=== PATIENT | male | born 1980 | race Caucasian/White ===

== ENCOUNTER → 2017-08-14 | Outpatient (CLI) | payer OTHER | LOC: M EKG 11:38 | DX: Z43.1 Encounter for attention to gastrostomy (principal) | CPT/HCPCS: 93005 ==

== ENCOUNTER 2017-10-27 12:04 | Day surgery (SDC) | payer OTHER ==
[2017-10-27] MEDS ORDERED: LIDOCAINE 1% MDV 20ML VIAL SQ (12:45)
[2017-10-27] MEDS ORDERED: fentaNYL 250 MCG/5 ML INJECTION (J3010) As Ordered (12:46)
[2017-10-27] MEDS ORDERED: MIDAZOLAM INJ 2 MG/2 ML VIAL (J2250) As Ordered (12:46)
[2017-10-27] MEDS ORDERED: LIDOCAINE 2% INJ 100 MG/5 ML SDV (FOR ANES.) As Ordered ×2 (12:46→15:35)
[2017-10-27] MEDS ORDERED: PROPOFOL 200 MG/20 ML VIAL As Ordered ×7 (12:46→16:06)
[2017-10-27] MEDS ORDERED: METOCLOPRAMIDE INJ 10MG/2ML VIAL (J2765) As Ordered (12:46)
[2017-10-27] MEDS ORDERED: ROCURONIUM BROMIDE 50 MG/5 ML VIAL As Ordered (12:46)
[2017-10-27] MEDS ORDERED: ONDANSETRON 4MG/2ML VIAL (J2405) As Ordered (12:46)
[2017-10-27] MEDS: LR 1,000 ML IV ×2 (13:00→17:15)
[2017-10-27] MEDS: CelecoXIB 400 MG CAP PO (13:01)
[2017-10-27] MEDS: PREGABALIN 50 MG CAP (LYRICA) PO ×2 (13:02→20:08)
[2017-10-27] MEDS: PERCOCET 5MG/325MG TAB PO ×2 (13:03→20:08)
[2017-10-27] MEDS: VANCOMYCIN HCL 1,000 MG, VIAL MATE ADAPTER 1 EACH in D5W 250 ML IV ×2 (13:05→20:08)
[2017-10-27] MEDS ORDERED: SCOPOLAMINE 1MG TRANSDERMAL PATCH As Ordered (13:29)
[2017-10-27] MEDS: SCOPOLAMINE 1MG TRANSDERMAL PATCH TOP (13:40)
[2017-10-27] MEDS: LIDOCAINE W/EPINEPHRINE 1% 20ML VIAL As Ordered (14:56)
[2017-10-27] MEDS: THROMBIN SOLN 20,000 UNITS KIT As Ordered (16:07)
[2017-10-27] MEDS ORDERED: dexameTHASONE 4 MG/ML 1ML VIAL (J1100) As Ordered ×2 (16:07)
[2017-10-27] MEDS ORDERED: GLYCOPYRROLATE INJ 0.2 MG/ML 2 ML VIAL As Ordered ×2 (16:07→16:08)
[2017-10-27] MEDS: BACITRACIN PWD 50,000 UNITS VIAL As Ordered (16:07)
[2017-10-27] MEDS ORDERED: NEOSTIGMINE 10 MG/10 ML VIAL (J2710) As Ordered (16:08)
[2017-10-27] MEDS: BUPIVACAINE HCL 0.25% 10 ML VIAL As Ordered (16:09)
[2017-10-27] MEDS: BUPIVACAINE LIPOSOME/PF 1.3% 20 ML VIAL (13.3MG/ML)(EXPAREL) As Ordered (16:10)
[2017-10-27] MEDS ORDERED: ONDANSETRON 4MG/2ML VIAL (J2405) IV (17:15)
[2017-10-27] MEDS ORDERED: HYDROmorphone HCL 1 MG/ML SYRINGE (J1170) IV ×3 (17:15)
[2017-10-27] MEDS ORDERED: ACETAMINOPHEN TAB 650MG DOSE (2X325MG) PO (17:15)
[2017-10-27] MEDS ORDERED: PERCOCET 5MG/325MG TAB PO ×2 (17:15)
[2017-10-27] MEDS ORDERED: fentaNYL 100 MCG/2 ML INJECTION (J3010) IV (17:15)
[2017-10-27] MEDS ORDERED: CYCLOBENZAPRINE 10 MG TAB PO (17:30)
[2017-10-27] MEDS: D5W/LR 1,000 ML IV (18:46)
[2017-10-28] MEDS: PERCOCET 5MG/325MG TAB PO ×3 (00:04→11:45)
[2017-10-28] MEDS: METAMUCIL (PSYLLIUM) PACKET PO (08:38)
[2017-10-28] MEDS: MOM 30ML SUSPENSION UDC PO (08:38)
[2017-10-28] MEDS: PREGABALIN 50 MG CAP (LYRICA) PO (08:38)
[2017-10-28] MEDS: CelecoXIB (CeleBREX) 100 MG CAP PO (08:39)
[2017-10-28] MEDS: ONDANSETRON 4 MG TAB (S0181) PO (11:44)
== END 2017-10-28 11:55 | disposition home or self-care (01) ==
LOC: M SDC 12:04 → M MS5PR 18:10
DX: M51.17 Intervertebral disc disorders with radiculopathy, lumbosacral region (principal); M12.9 Arthropathy, unspecified; T88.59XD Other complications of anesthesia, subsequent encounter; Z88.0 Allergy status to penicillin
CPT/HCPCS: 63030

== ENCOUNTER → 2021-04-10 | Outpatient (CLI) | payer OTHER ==
[~2021-04-10] MED LIST: CYCL-707 PO; NAPR-849 PO; PROHANCE 279.3MG/ML 15ML VIAL As Ordered ONE; PROHANCE 279.3MG/ML 5ML VIAL As Ordered ONE
--- NOTE | 2021-04-10 20:38 | REPVR ---
PROCEDURE INFORMATION: Exam: MR Lumbar Spine Without and With Contrast Exam date and time: 04/10/2021 6:10 PM Age: 40 years old Clinical indication: Low back pain; Additional info: Radiculopathy TECHNIQUE: Imaging protocol: Multiplanar magnetic resonance images of the lumbar spine without and with intravenous contrast. Contrast material: PROHANCE; Contrast volume: 20 ml; Contrast route: INTRAVENOUS (IV); COMPARISON: [facility]. Lumbosacral, complete 10/27/2017 3:13 PM FINDINGS: Vertebral body heights are maintained. Mild Modic type 1 edematous degenerative endplate change at L5-S1. No cord compression. No abnormal cord signal. Conus medullaris terminates at the L1 level. Paravertebral soft tissues are unremarkable. L1-L2: No significant canal or foraminal narrowing. L2-L3: No significant canal or foraminal narrowing. L3-L4: No significant canal or foraminal narrowing. L4-L5: No significant canal or foraminal narrowing. L5-S1: Broad-based disc bulge and facet hypertrophy cause moderate left and [id number] right foraminal narrowing. Slight impingement upon the exiting left L5 nerve root. No significant canal narrowing. 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 Electronically signed by: Rei Hughes On 04/10/2021 20:37:58 PM
== END ==
LOC: M RAD 17:20
PROVIDERS: ATTEND Physical Medicine & Rehabilitation
DX: M51.27 Other intervertebral disc displacement, lumbosacral region (principal); M48.07 Spinal stenosis, lumbosacral region; M96.1 Postlaminectomy syndrome, not elsewhere classified
CPT/HCPCS: 72158; A9576

== ENCOUNTER → 2023-12-18 | Outpatient (REF) ==
[~2023-12-18] MED LIST changes: -PROHANCE 279.3MG/ML 15ML VIAL As Ordered ONE; -PROHANCE 279.3MG/ML 5ML VIAL As Ordered ONE
== END ==
LOC: M PLAIMG 11:24
PROVIDERS: ATTEND Internal Medicine
DX: M54.6 Pain in thoracic spine (principal)

== ENCOUNTER → 2024-09-28 | Outpatient (CLI) | payer OTHER ==
[~2024-09-28] MED LIST changes: +BUSP10TA PO; +TAMS1CAP17 PO; +TRAZ-252 PO
[2024-09-28 11:49] LABS: APPEARANCE, URINE CLEAR (CLEAR); BACTERIA, URINE AUTO NEGATIVE (NEGATIVE); BILIRUBIN, URINE AUTO NEGATIVE (NEGATIVE); BLOOD, URINE BLOOD NEGATIVE (NEGATIVE); COLOR, URINE STRAW (YELLOW); GLUCOSE, URINE (UA) AUTO NEGATIVE (NEGATIVE); KETONE, URINE AUTO NEGATIVE (NEGATIVE); LEUKOCYTE ESTERASE, URINE AUTO NEGATIVE (NEGATIVE); NITRITE, URINE AUTO NEGATIVE (NEGATIVE); PROTEIN, URINE AUTO NEGATIVE (NEGATIVE); RBC, URINE AUTO 0 /HPF (0-3); SPECIFIC GRAVITY URINE AUTO 1.003 (1.002-1.035); SQUAMOUS EPITHELIAL CELL UR AU 0 /HPF (0-6); UROBILINOGEN, URINE AUTO 0.2 mg/dL (0.0-2.0); WBC, URINE AUTO 0 /HPF (0-3)
[2024-09-28 12:00] LABS: HEMATOCRIT 41.9 % (42.0-52.0); HEMOGLOBIN 14.1 g/dl (13.5-17.5); MEAN CORPUSCULAR HEMOGLOBIN 30.9 pg (27.0-33.0); MEAN CORPUSCULAR HGB CONC 33.7 g/dl (32.0-36.5); MEAN CORPUSCULAR VOLUME 91.7 fl (80.0-96.0); PLATELET COUNT, AUTOMATED 328 10^3/uL (150-450); RED BLOOD COUNT 4.57 10^6/uL (4.30-6.10)
[2024-09-28 12:16] LABS: BLOOD UREA NITROGEN 13 MG/DL (9-23); CALCIUM LEVEL 9.3 MG/DL (8.5-10.1); CARBON DIOXIDE LEVEL 30 MMOL/L (20-31); CHLORIDE LEVEL 104 MMOL/L (98-107); CREATININE FOR GFR 0.78 MG/DL (0.70-1.30); GLOMERULAR FILTRATION RATE > 60.0 (>60); GLUCOSE, FASTING 96 MG/DL (60-100); POTASSIUM SERUM 4.1 MMOL/L (3.5-5.1); SODIUM LEVEL 141 MMOL/L (136-145)
== END ==
LOC: M RAD 10:22
PROVIDERS: ATTEND Physician Assistant
DX: Z01.818 Encounter for other preprocedural examination (principal); Z79.899 Other long term (current) drug therapy

== ENCOUNTER 2024-10-05 09:28 | Day surgery (SDC) | payer OTHER ==
[~2024-10-05] VITALS: Ht 182.9 cm; Wt 103.6 kg
[2024-10-05] MEDS ORDERED: MIDAZOLAM INJ 2MG/2ML VIAL As Ordered ONE (10:14)
[2024-10-05] MEDS ORDERED: propofoL 200 MG/20 ML VIAL As Ordered ONE (10:14)
[2024-10-05] MEDS ORDERED: ONDANSETRON 4MG 2ML VIAL As Ordered ONE (10:14)
[2024-10-05] MEDS ORDERED: LIDOCAINE 2% 100MG/5ML SDV (FOR ANES.) As Ordered ONE (10:14)
[2024-10-05] MEDS ORDERED: fentaNYL 100 MCG/2 ML INJECTION As Ordered ONE (10:15)
[2024-10-05] MEDS ORDERED: NS (Normal Saline) 0.9% 1,000 ML IV SCH ×2 (10:25→12:50)
[2024-10-05] MEDS ORDERED: SCOPOLAMINE 1MG TRANSDERMAL PATCH TOP SCH (10:25)
[2024-10-05] MEDS ORDERED: diphenhydrAMINE 50MG/ML VIAL As Ordered ONE (10:38)
[2024-10-05] MEDS: SCOPOLAMINE 1MG TRANSDERMAL PATCH TOP ONE (10:39)
[2024-10-05] MEDS ORDERED: METOCLOPRAMIDE INJ 10MG/2ML VIAL As Ordered ONE (10:41)
[2024-10-05] MEDS: ceFAZolin SOD 2 GM in IV 1 EA IV ONE (12:09)
[2024-10-05] MEDS ORDERED: ACETAMINOPHEN 1000MG/100ML IV BAG As Ordered ONE (12:20)
[2024-10-05] MEDS: ISOVUE-300 61% 100ML VIAL As Ordered ONE (12:39)
[2024-10-05] MEDS ORDERED: HYDROMORPHONE HCL 0.5 MG/ 0.5 ML SYRINGE IV PRN (12:50)
[2024-10-05] MEDS ORDERED: oxyCODONE 5MG TAB PO PRN (12:50)
[2024-10-05] MEDS ORDERED: fentaNYL 100 MCG/2 ML INJECTION IV PRN (12:50)
[2024-10-05] MEDS ORDERED: ONDANSETRON 4MG 2ML VIAL IV PRN (12:50)
[2024-10-05] MEDS ORDERED: PERCOCET 5MG/325MG TAB PO PRN (13:05)
[2024-10-05 14:36] VITALS: BP 106/54; TEMP 96.6; O2SAT 96
== END 2024-10-05 14:50 | disposition home or self-care (01) ==
LOC: M SDC 09:28
PROVIDERS: ATTEND Urology
DX: N20.2 Calculus of kidney with calculus of ureter (principal); F41.9 Anxiety disorder, unspecified; F32.A Depression, unspecified; F43.10 Post-traumatic stress disorder, unspecified; G43.909 Migraine, unspecified, not intractable, without status migrainosus; Z79.899 Other long term (current) drug therapy; Z88.0 Allergy status to penicillin
CPT/HCPCS: 52005; 76000; J0131; J0690; J1100; J1200; J2250; J2405; J2765; J3010; Q9967

== ENCOUNTER → 2024-11-07 | Outpatient (CLI) | payer OTHER ==
[2024-11-07 12:39] LABS: HEMATOCRIT 42.5 % (42.0-52.0); HEMOGLOBIN 14.4 g/dl (13.5-17.5); MEAN CORPUSCULAR HEMOGLOBIN 30.6 pg (27.0-33.0); MEAN CORPUSCULAR HGB CONC 33.9 g/dl (32.0-36.5); MEAN CORPUSCULAR VOLUME 90.2 fl (80.0-96.0); PLATELET COUNT, AUTOMATED 303 10^3/uL (150-450); RED BLOOD COUNT 4.71 10^6/uL (4.30-6.10); WHITE BLOOD COUNT 8.3 10^3/uL (4.0-10.0)
[2024-11-07 13:59] LABS: BLOOD UREA NITROGEN 18 MG/DL (9-23); CALCIUM LEVEL 9.1 MG/DL (8.5-10.1); CARBON DIOXIDE LEVEL 30 MMOL/L (20-31); CHLORIDE LEVEL 104 MMOL/L (98-107); CREATININE FOR GFR 0.84 MG/DL (0.70-1.30); GLOMERULAR FILTRATION RATE > 60.0 (>60); GLUCOSE, FASTING 90 MG/DL (60-100); POTASSIUM SERUM 4.3 MMOL/L (3.5-5.1); SODIUM LEVEL 141 MMOL/L (136-145)
== END ==
LOC: M LAB 12:19
PROVIDERS: ATTEND Physician Assistant
DX: Z01.818 Encounter for other preprocedural examination (principal)

== ENCOUNTER 2024-11-10 06:08 | Day surgery (SDC) | payer OTHER ==
[~2024-11-10] VITALS: Ht 185.4 cm; Wt 104.7 kg
[2024-11-10] MEDS ORDERED: MIDAZOLAM INJ 2MG/2ML VIAL As Ordered ONE (06:14)
[2024-11-10] MEDS ORDERED: propofoL 200 MG/20 ML VIAL As Ordered ONE (06:14)
[2024-11-10] MEDS ORDERED: GLYCOPYRROLATE INJ 0.2 MG/ML 2 ML VIAL As Ordered ONE (06:15)
[2024-11-10] MEDS ORDERED: LIDOCAINE 2% INJ 100 MG/5 ML SYRINGE As Ordered ONE (06:18)
[2024-11-10] MEDS ORDERED: LIDOCAINE 2% 100MG/5ML SDV (FOR ANES.) As Ordered ONE (06:23)
[2024-11-10] MEDS ORDERED: LR 1,000 ML IV SCH ×2 (07:10→08:40)
[2024-11-10] MEDS: SCOPOLAMINE 1MG TRANSDERMAL PATCH TOP ONE (07:20)
[2024-11-10] MEDS ORDERED: KETOROLAC 30 MG/ML 1ML VIAL As Ordered ONE (07:29)
[2024-11-10] MEDS: SCOPOLAMINE 1MG TRANSDERMAL PATCH As Ordered ONE (07:29)
[2024-11-10] MEDS: ceFAZolin SOD 2 GM IV ONCE IV ONE (07:40)
[2024-11-10] MEDS ORDERED: ONDA-83 PO (07:47)
[2024-11-10] MEDS ORDERED: ONDANSETRON 4MG 2ML VIAL As Ordered ONE (07:47)
[2024-11-10] MEDS ORDERED: FLOM0.4C39 PO (07:47)
[2024-11-10] MEDS ORDERED: OXYC1TAB23 PO (07:47)
[2024-11-10] MEDS ORDERED: ePHEDrine SULFATE 25 MG/5 ML(5MG/ML) SYRINGE As Ordered ONE (07:57)
[2024-11-10] MEDS ORDERED: oxyCODONE 5MG TAB PO PRN (08:40)
[2024-11-10] MEDS ORDERED: fentaNYL 100 MCG/2 ML INJECTION IV PRN (08:40)
[2024-11-10] MEDS ORDERED: ONDANSETRON 4MG 2ML VIAL IV PRN (08:40)
[2024-11-10] MEDS ORDERED: HYDROMORPHONE HCL 0.5 MG/ 0.5 ML SYRINGE IV PRN (08:40)
[2024-11-10] MEDS: PROMETHAZINE 25MG/ML 1ML VIAL IV ONE (08:59)
[2024-11-10 10:00] VITALS: BP 103/59; TEMP 98; O2SAT 99
== END 2024-11-10 10:13 | disposition home or self-care (01) ==
LOC: M SDC 06:08
PROVIDERS: ATTEND Urology
DX: N20.0 Calculus of kidney (principal); G43.909 Migraine, unspecified, not intractable, without status migrainosus; Z88.0 Allergy status to penicillin; Z79.899 Other long term (current) drug therapy; F41.9 Anxiety disorder, unspecified; F32.A Depression, unspecified; F43.10 Post-traumatic stress disorder, unspecified
CPT/HCPCS: 50590; 74018; J0690; J1596; J1885; J2250; J2405; J2550

== ENCOUNTER → 2024-12-08 | Outpatient (CLI) | payer OTHER ==
[~2024-12-08] MED LIST changes: +ONDA-83 PO; +OXYC1TAB23 PO; +TAMS-18 PO
== END ==
LOC: M RAD 12:06
PROVIDERS: ATTEND Urology
DX: N20.0 Calculus of kidney (principal)

== ENCOUNTER → 2024-12-09 | Outpatient (REF) | payer OTHER | LOC: M SMT 16:55 | PROVIDERS: ATTEND Physician Assistant | DX: Z48.816 Encounter for surgical aftercare following surgery on the genitourinary system (principal) ==

== ENCOUNTER → 2025-05-31 | Outpatient (CLI) | payer OTHER | LOC: M LAB 11:33 | PROVIDERS: ATTEND Physician Assistant | DX: Z87.442 Personal history of urinary calculi (principal) ==